=== PATIENT | male | born 1990 | race Caucasian/White ===

== ENCOUNTER 2023-02-25 21:38 | Emergency (ER) | payer SELFPAY ==
[2023-02-25 22:03] VITALS: BMI 25.7
[2023-02-25] MEDS ORDERED: METOCLOPRAMIDE HCL INJECTION 10 MG/2 ML VIAL IVPB ONE (22:46)
[2023-02-25] MEDS ORDERED: SODIUM CHLORIDE 0.9% 500 ML INFUS.BAG IV ONE (22:46)
[2023-02-25] MEDS ORDERED: ONDANSETRON 4 MG/2 ML VIAL IVPUSH ONE (22:47)
[2023-02-25] MEDS ORDERED: ACETAMINOPHEN 1000 MG/100 ML BAG IVPB ONE (22:47)
[2023-02-25] MEDS ORDERED: FAMOTIDINE 20 MG/50 ML IVPB 20 MG/50 ML MG IVPB ONE ×2 (22:48→23:15)
[2023-02-25 23:13] LABS: BASO % 0.5 % (0-2.0); EOS % 0.6 % (0-4.5); HEMATOCRIT 44.6 % (35.4-49); HEMOGLOBIN 15.7 GM/dL (11.7-16.9); LYMPH % 16.9 % (8-40); MCHC 35.2 g/dl (32.0-35.9); MEAN PLT VOLUME 7.7 fl (7.5-11.1); PLATELET COUNT 200 10^3/uL (134-434); RBC 5.07 M/mm3 (4.00-5.60); RDW 14.3 % (11.9-15.9); WHITE BLOOD COUNT 10.9 K/mm3 (4.0-10.0)
[2023-02-25] MEDS ORDERED: ACETAMINOPHEN INJECTION 100 ML IVPB ONE (23:14)
[2023-02-25] MEDS ORDERED: METOCLOPRAMIDE HCL INJECTION 10 MG/2 ML VIAL ONE (23:14)
[2023-02-26 00:03] LABS: POTASSIUM 3.3 mmol/L (3.5-5.1)
[2023-02-26 00:04] LABS: CALCIUM 8.8 mg/dL (8.5-10.1)
[2023-02-26 00:05] LABS: ALBUMIN 4.4 g/dl (3.4-5.0); BLOOD UREA NITROGEN 10.6 mg/dL (7-18); MAGNESIUM 2.1 mg/dL (1.8-2.4)
[2023-02-26 00:08] LABS: CREATININE 1.1 mg/dL (0.55-1.3)
[2023-02-26 00:09] LABS: BILIRUBIN,TOTAL 0.4 mg/dL (0.2-1)
[2023-02-26 01:17] VITALS: RESP 18
[2023-02-26 04:04] VITALS: BP 122/65; PULSE 103; TEMP 98.1
== END 2023-02-26 04:19 | disposition home or self-care (01) ==
LOC: JER 21:38
PROC: 3E033GC Introduction of Other Therapeutic Substance into Peripheral Vein, Percutaneous Approach (ICD-10-PCS; principal; 2023-02-25)
PROC: 3E033NZ Introduction of Analgesics, Hypnotics, Sedatives into Peripheral Vein, Percutaneous Approach (ICD-10-PCS; 2023-02-25)
PROC: 3E033GC Introduction of Other Therapeutic Substance into Peripheral Vein, Percutaneous Approach (ICD-10-PCS; 2023-02-25)
DX: R51.9 Headache, unspecified (principal); R11.2 Nausea with vomiting, unspecified; R68.83 Chills (without fever); R07.9 Chest pain, unspecified; R10.13 Epigastric pain; F10.129 Alcohol abuse with intoxication, unspecified; R74.01 Elevation of levels of liver transaminase levels; Y90.9 Presence of alcohol in blood, level not specified
CPT/HCPCS: 36415; 70450-TC; 72125-TC; 76705-TC; 80053; 83690; 83735; 84484; 85025; 93005; 93010; 99285-25